=== PATIENT | male | born 1985 | race Caucasian/White ===

== ENCOUNTER 2025-06-04 06:38 | Emergency (ER) | payer BC, SELFPAY ==
[2025-06-04 06:46] VITALS: BP 100/85
[2025-06-04 07:00] VITALS: BP 117/94
--- NOTE | 2025-06-04 07:08 | ED.GENMED ---
History of Present Illness
General
Chief Complaint: Abdominal Symptoms
Source: patient
Exam Limitations: none
Time Seen by Provider: 06/04/25 07:06
Nursing documentation reviewed up to this point in time: agreed with
History of Present Illness
History of Present Illness:
see MDM
Past History
Past History
ED Past Medical History: None
ED Past Surgical History: None
Social History
Tobacco: Non-smoker
Alcohol: Occasional
Drug: None
Personal:
Living: with family
Phy Exam
Physical Exam
Physical Exam:
GENERAL: Alert , in no apparent distress
EYE: pupils equal and reactive
NECK: Supple
ENT: o/p clr, mmm.
CARDIAC: Regular rate and rhythm .
LUNGS: Clear breath sounds bilaterally, no acute respiratory distress, no wheezes/rales/rhonchi
ABDOMEN: Soft, mild tenderness to the left abdomen, no guarding , no r/g, no cvat, normal bowel sounds
NEUROLOGICAL: Alert and oriented, no focal neuro deficits
SKIN: Warm and dry, skin intact.
MUSCULOSKELETAL: No edema, well perfused. neg suhail's sign
PSYCH: Normal and appropriate interaction.
Course
Orders/Labs/Results
Orders:
Orders
06/04/25 07:05
Complete Blood Count/With Diff Urgent
Comprehensive Metabolic Panel Urgent
Lipase Urgent
06/04/25 07:14
CT Abd/Pel (IV only)-DH only Urgent
Comment:
Reason For Exam: LLQ pain, severe
0.9% Sodium Chloride 1000 ml [Nss] 1,000 ml IV BOLUS
Ketorolac [Toradol] 30 mg IV NOW STA
06/04/25 07:33
Urinalysis Reflex To Culture Urgent
Date Specimen was Collected: 06/04/25
Time Specimen was Collected: 07:03
Urine Microscopic Reflex Cult Urgent
06/04/25 09:04
Dicyclomine [Bentyl] 20 mg PO NOW STA
Abnormal Lab Results
06/04/25 06/04/25
07:05 07:33
MCV 94.8 H fL
(80.0-94.0)
MCH 34.4 H pg
(27.0-31.0)
Glucose 124 H mg/dl
(70-99)
Urine Bacteria (Reflex) Few A
(Negative)
Urine Glucose 2+ A
(Negative)
Urine Albumin (Reflex) 1+ A
(Neg - Trace)
06/04/25 07:05
06/04/25 07:05
Vital Signs
Initial and Last Documented VS:
Initial Vital Signs
Temp Pulse Resp Pulse Ox
36.7 C 68 20 100
06/04/25 06:40 06/04/25 06:40 06/04/25 06:40 06/04/25 06:40
Last Documented Vital Signs
Temp Pulse Resp BP Pulse Ox
36.7 C 68 20 124/74 98
06/04/25 06:40 06/04/25 06:40 06/04/25 06:40 06/04/25 09:00 06/04/25 09:15
MDM/Problems Addressed
Differential Diagnosis Includes:
see MDM
MDM/Problems Addressed:
Note:
CHIEF COMPLAINT(S)
Severe abdominal pain.
HISTORY OF PRESENT ILLNESS
The patient is a 40-year-old male presenting with severe abdominal cramping which began at 6 am waking him up from sleep. it was pretty severe, he tried to walk around but didn't get any relief. The patient experienced nausea and dry heaving due to
the pain. There is no history of kidney stones or any radiation of pain to the back. The patient denied vomiting and diarrhea. The pain intensity was initially reported as a ten on a scale of zero to ten inintally, now it is a 2/10, no meds taken to
improve. Changes in position offer slight relief. The patient consumed medical marijuana but denied alcohol or a large meal intake before the onset of symptoms. The patient mentioned undergoing surgery for an inguinal hernia around two to three
years ago.
PAST SURGICAL HISTORY
Inguinal hernia repair approximately two to three years ago.
SOCIAL HISTORY
The patient uses medical marijuana, described as typical use but not in large quantities.
REVIEW OF SYSTEMS
- Gastrointestinal: Severe abdominal cramping, nausea, dry heaving.
- General: No fever or chills reported.
PHYSICAL EXAM
- Abdominal: Tenderness upon palpation.
Nursing notes reviewed and vital signs reviewed.
PLAN
1. Obtain urine sample for analysis.
2. Conduct blood work to evaluate possible sources of abdominal pain.
3. Administer ibuprofen for pain management, with the option to provide stronger analgesics if necessary.
4. Prescribe antiemetic medication for nausea management.
DIFFERENTIAL DIAGNOSIS
The Differential Diagnosis includes, in no particular order and is not limited to:
1. Gastroenteritis
2. Diverticulitis
3. Biliary colic
4. Renal colic
5. Peptic ulcer disease
6. Appendicitis
7. Hernia-related complications
8. Inflammatory bowel disease
9. Pancreatitis
10. Abdominal aortic aneurysm
Male with no medical problems says he woke up around 615 with a pretty severe abdominal cramp, more in the left side of his abdomen 40-year-old, nonradiating, he tried walking around and did not feel any better, he was kind of hunched over. He
thought it would pass but it was pretty intense. It started in the past while he has been laying in the ED exam room. He has not had any radiation to his back, hematuria, vomiting but he did get nauseous, he thinks that was from the pain. He has
not had diarrhea or constipation.
Patient is afebrile, he appears comfortable, he has mild tenderness to the left abdomen without guarding or rebound. Will eval with labs, CT, IV fluids, Toradol
CARE-UPDATE
06/04/25 - 09:04
Patient reports feeling much 'better' compared to before, although they still experience a sensation of fullness reminiscent of post-hernia surgery. Current lab work remains unremarkable, with normal white blood cell count and liver markers. CT scan
indicates mildly prominent fluid-filled bowel loops, suggesting a viral gastroenteritis or a potential ileus. No signs of a full bowel obstruction currently, but the patient is cautioned to watch for symptoms such as continuous vomiting or inability
to pass gas, which would necessitate further medical attention. Recommended to increase hydration as the primary intervention to alleviate symptoms. Prescribed Bentyl for cramp-related abdominal pain, which will be administered prior to discharge.
Advised that Pepto-Bismol may also be taken but may cause darkening of stools. Recommended monitoring for progression of symptoms and condition considered stable for discharge with instructions to return if symptoms worsen.
*Pulse Oximetry
SaO2: 100
Oxygen Mode of Delivery: Room air
Patient hypoxic: no (98)
*Critical Care Note
Total Time (30-74mins, 75-104mins- exclusive of procedures): Not Applicable
ED Attending Note
-
Portions of this chart may have been created with voice recognition software.� Occasional wrong word or��sound alike� substitutions may have occurred due to the inherent limitations of voice recognition software.
Discharge Plan
Departure
Patient Disposition: Home (Routine Discharge)
Date of Disposition: 06/04/25
Time of Disposition: 09:06
Patient with high blood pressure during this ER visit?: No
Condition: Fair
Discharge Problem:
Enteritis
Instructions: Clear Liquid Diet, Abdominal Pain
Prescriptions:
New
dicyclomine 20 mg tablet
20 mg PO QID PRN (Reason: abdominal pain) Qty: 15 0RF
No Action
alprazolam [Xanax] 0.25 mg Tablet
0.25 mg PO DAILY PRN (Reason: anxiety)
Marijuana
1 ea inhalation PRN PRN (Reason: anxiety)
multivitamin
1 tab PO DAILY
acetaminophen [Tylenol] 325 mg Tablet
650 mg PO Q4H PRN (Reason: pain)
ibuprofen 200 mg tablet
400 - 600 mg PO Q6HPRN PRN (Reason: moderate pain) Qty: 1 0RF
oxycodone 5 mg tablet
5 mg PO Q4HPRN PRN (Reason: breakthrough/severe pain) Qty: 10 0RF
Referrals:
Joanna Huitron MD [Family Provider, Family Practice]
Activity Restrictions/Additional Instructions:
Your pain was likely from a mild viral infection in your GI tract. Stay hydrated, bland diet or clear liquids today as tolerated. For pain you could use Bentyl 20 mg every 6-8 hours as needed for crampy abdominal pain. You could also try Tylenol
or Motrin. You may develop vomiting and diarrhea. It is important to watch his symptoms, if you start getting more abdominal swelling, inability to tolerate liquids, severe constipation/not passing gas he needs to return.
Otherwise follow-up with your doctor as needed
Interventions
Interventions:
*General Assessment Last Done: 06/04/25 09:20
*Neglect/Abuse Screening Last Done: 06/04/25 09:20
*ED COVID-19 Vaccine History Last Done: 06/04/25 09:20
*ED Influenza Vaccine History Last Done: 06/04/25 09:20
[facility] Risk Assessment Tool Last Done: 06/04/25 09:20
*Risk Screen - Suicide (C-SSRS) Last Done: 06/04/25 06:40
*Nursing Disposition Last Done: 06/04/25 09:20
MH-Jtfswb-[id number] Assessment Last Done: 06/04/25 09:20
Discharge Date and Time
Discharge Date/Time: 06/04/25 09:30
Print Language: QATARI
[2025-06-04] MEDS: NSS 1000 IV (07:28)
[2025-06-04] MEDS: TORADOL 30 MG IV (07:29)
[2025-06-04 07:38] LABS: ALT (SGPT) 26 U/L (0-50); AST (SGOT) 25 U/L (17-59); Albumin 4.3 g/dl (3.5-5.0); Alkaline Phosphatase 81 U/L (38-126); Blood Urea Nitrogen 17 mg/dl (9-20); Calcium 9.0 mg/dl (8.4-10.2); Carbon Dioxide 25 mmol/L (22-30); Chloride 104 mmol/L (98-107); Glucose 124 mg/dl (70-99); Lipase 190 U/L (23-300); Potassium 3.7 mmol/L (3.5-5.1); Sodium 138 mmol/L (135-145); Total Protein 6.6 g/dl (6.3-8.2); eGFR > 60.00
[2025-06-04 07:49] LABS: Urine Character Clear (Clear)
[2025-06-04 08:08] LABS: Hematocrit 45.2 % (39.0-52.0); Hemoglobin 16.4 g/dL (13.0-18.0); Mean Corp Hgb Conc. 36.3 g/dL (33.0-37.0); Mean Corpuscular Volume 94.8 fL (80.0-94.0); Platelet Count 208 10^3/uL (130-400); Red Cell Dist. Width 11.9 % (11.5-14.5)
[2025-06-04 08:47] VITALS: BP 127/72
[2025-06-04 09:00] VITALS: BP 124/74
[2025-06-04] MEDS: BENTYL 20 MG PO (09:18)
[2025-06-04 09:23] LABS: Urine Red Blood Cell 0-2 /HPF (0-2); Urine Squamous Cell 0-2 /LPF (Few); Urine White Cell 0-2 /HPF (0-5)
[2025-06-04 11:04] LABS: Nucleated Red Blood Cells % 0 % (-)
== END 2025-06-04 09:30 | disposition home or self-care (01) ==
LOC: EMR 06:38
PROVIDERS: EMERGENCY PHYSICIAN Emergency Medicine; FAMILY PHYSICIAN Family Medicine
DX: K52.9 Noninfective gastroenteritis and colitis, unspecified (principal)
CPT/HCPCS: 99284; 96374; 96361; 74177; 80053; 81003; 81015; 83690; 85025; Q9967